=== PATIENT | male | born 1945 | race Caucasian/White ===

== ENCOUNTER → 2018-05-23 | Outpatient (CLI) | payer MEDICARE, BC, OTHER ==
[~2018-05-23] MED LIST: ASPI81EC PO; CEPH500 PO; CIPR500 PO; DRON2.5 PO; GLUCHON PO; LEVFLO500 PO; LORA1 PO; METF500 PO; METR500 PO; MSM PO; ONDA4 PO; ONDA4ODT MM; OXYACE5T PO; OXYACE7.5T PO; OXYC5 PO; SIMV40 PO; TAMS.4ER PO; [UNRECOGNIZED DRUG - REMARK]
[2018-05-23 12:40] LABS: BASOPHILS ABSOLUTE AUTO 0.05 K/mm3 (0.00-0.23); BASOPHILS PERCENT AUTO 1 % (0-2); EOSINOPHILS ABSOLUTE AUTO 0.03 K/mm3 (0.00-0.68); EOSINOPHILS PERCENT AUTO 0 % (0-6); Hematocrit 48.2 % (37.0-53.0); Hemoglobin 16.4 g/dL (13.5-17.5); IMMATURE GRAN ABSOLUTE AUTO 0.02 K/mm3 (0.00-0.10); IMMATURE GRAN PERCENT AUTO 0 % (0-1); LYMPHOCYTES ABSOLUTE AUTO 2.05 K/mm3 (0.84-5.20); LYMPHOCYTES PERCENT AUTO 23 % (21-46); MONOCYTES ABSOLUTE AUTO 0.95 K/mm3 (0.16-1.47); MONOCYTES PERCENT AUTO 11 % (4-13); Mean Corpuscular HGB 31.3 pg (26.0-34.0); Mean Corpuscular Volume 92 fL (80-100); Mean Platelet Volume 11.6 fL (9.1-12.4); NEUTROPHILS ABSOLUTE AUTO 5.99 K/mm3 (1.96-9.15); NEUTROPHILS PERCENT AUTO 66 % (41-73); Platelet Count 218 K/mm3 (150-400); RDW Coefficient Variation 13.4 % (11.7-14.2); RDW Standard Deviation 45.5 fL (35.1-46.3); Red Blood Cell Count 5.24 M/mm3 (4.30-5.90); White Blood Cell Count 9.09 K/mm3 (4.00-11.30)
[2018-05-23 12:50] LABS: Bun/Creatinine Ratio 10.4 (12.0-20.0); Creatinine, Blood 1.54 mg/dL (0.60-1.20); Potassium, Blood 3.6 mmol/L (3.5-5.5)
== END | disposition home or self-care (01) ==
LOC: LAB EV 12:36 → LAB SHORT 12:36
PROVIDERS: Physician Assistant Surgical
DX: J18.9 Pneumonia, unspecified organism (principal)
CPT/HCPCS: 80048; 85025

== ENCOUNTER 2018-08-16 13:16 | Day surgery (SDC) | payer MEDICARE, BC, OTHER ==
--- NOTE | 2018-08-16 15:08 | NUR ---
PT TO ROOM FROM RADIOLOGY. PT HAD LIVER BIOPSY DONE AND IS ON BEDREST FOR 2HRS. PT ARRIVES TO UNIT VIA STRETCHER, ALERT AND ORIENTED. PT FAMILY PRESENT. VSS. PT AND PT FAMILY OFFERED FOOD AND BEVERAGE, BOTH DECLINED. CALL LIGHT IN REACH.
--- NOTE | 2018-08-16 15:40 | NUR ---
vss. pt alert and oriented. nadn. family at bedside.
--- NOTE | 2018-08-16 16:10 | NUR ---
pt resting in position of comfort. nadn. call light in reach.
--- NOTE | 2018-08-16 17:35 | NUR ---
DISCUSSED DC INSTRUCTIONS WITH PT THAT WERE PROVIDED BY IMAGING DEPT. PT HAS NO QUESTIONS. VERBALIZED UNDERSTANDING. ESCORTED PT TO [facility] LOBBY FOR DC.
== END 2018-08-16 17:45 | disposition home or self-care (01) ==
LOC: CT 13:16 → SURS 15:21 → CT 17:45
DX: C18.4 Malignant neoplasm of transverse colon (principal); C78.6 Secondary malignant neoplasm of retroperitoneum and peritoneum; C78.7 Secondary malignant neoplasm of liver and intrahepatic bile duct; R11.0 Nausea
CPT/HCPCS: 47000; 77012; 88307; 88341; 88342

== ENCOUNTER 2018-12-08 06:16 | Day surgery (SDC) | payer MEDICARE, BC, OTHER ==
[~2018-12-08] VITALS: Ht 175.3 cm; Wt 94.0 kg
[~2018-12-08 06:16] MED LIST changes: +Advil Migraine200 MG PO; +CAPE500 PO
--- NOTE | 2018-12-08 07:45 | NUR ---
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
== END 2018-12-08 08:25 | disposition home or self-care (01) ==
LOC: ORSCSDS 06:16
PROVIDERS: Surgery
PROC: 0DBP8ZX Excision of Rectum, Via Natural or Artificial Opening Endoscopic, Diagnostic (ICD-10-PCS; principal; 2018-12-08 07:30)
DX: Z12.11 Encounter for screening for malignant neoplasm of colon (principal); Z85.038 Personal history of other malignant neoplasm of large intestine; Z85.05 Personal history of malignant neoplasm of liver; K62.1 Rectal polyp; K57.30 Diverticulosis of large intestine without perforation or abscess without bleeding; F17.210 Nicotine dependence, cigarettes, uncomplicated; E11.9 Type 2 diabetes mellitus without complications; E78.5 Hyperlipidemia, unspecified; I10 Essential (primary) hypertension
CPT/HCPCS: 82947; 87081; 88305; J0330; J0461; J2405; J2704; J7120

== ENCOUNTER 2020-01-22 06:09 | Day surgery (SDC) | payer MEDICARE, BC, OTHER ==
[~2020-01-22] VITALS: Ht 175.3 cm; Wt 100.9 kg
--- NOTE | 2020-01-22 08:25 | NUR ---
01/22/20 0825 Jyoti Cline F 1 ATTEMPT BY MARIEBL MCMILLAN IN LEFT HAND, TWO ATTEMPTS BY MARIBEL LOMBARDI-ONE IN LEFT HAND AND LEFT AC. MARIBEL CHRISTIANDRAFTER CIVIL ENGINEERING NURSE CAME IN ATTEMPT IN RIGHT AC, LEFT WRIST AND SUCCESSFUL ATTEMPT IN LEFT HAND
== END 2020-01-22 08:10 | disposition home or self-care (01) ==
LOC: ORSCSDS 06:09
PROVIDERS: Surgery
PROC: 0DJ08ZZ Inspection of Upper Intestinal Tract, Via Natural or Artificial Opening Endoscopic (ICD-10-PCS; principal; 2020-01-22 07:30)
DX: K31.89 Other diseases of stomach and duodenum (principal); E11.9 Type 2 diabetes mellitus without complications; E78.5 Hyperlipidemia, unspecified; I10 Essential (primary) hypertension; E03.9 Hypothyroidism, unspecified; F41.9 Anxiety disorder, unspecified; E66.9 Obesity, unspecified; Z68.33 Body mass index [BMI] 33.0-33.9, adult; Z87.891 Personal history of nicotine dependence
CPT/HCPCS: J0330; J0461; J2405; J2704; J7120

== ENCOUNTER → 2020-05-26 | Outpatient (CLI) | payer MEDICARE, BC, OTHER ==
[2020-05-28 16:21] LABS: CORONAVIRUS (COVID19) CSH-NRL Negative (Negative)
== END | disposition home or self-care (01) ==
LOC: PLD 16:46 → LAB SHORT 16:46
PROVIDERS: Physician Assistant
DX: Z20.818 Contact with and (suspected) exposure to other bacterial communicable diseases (principal); Z20.828 Contact with and (suspected) exposure to other viral communicable diseases
CPT/HCPCS: U0003

== ENCOUNTER 2020-05-29 10:11 | Emergency (ER) | payer MEDICARE, BC, OTHER ==
[~2020-05-29] VITALS: Ht 175.3 cm; Wt 97.5 kg
[2020-05-29 11:39] LABS: BASOPHILS ABSOLUTE AUTO 0.04 K/mm3 (0.00-0.23); BASOPHILS PERCENT AUTO 0 % (0-2); EOSINOPHILS ABSOLUTE AUTO 0.13 K/mm3 (0.00-0.68); EOSINOPHILS PERCENT AUTO 1 % (0-6); Hematocrit 45.5 % (37.0-53.0); Hemoglobin 14.5 g/dL (13.5-17.5); IMMATURE GRAN ABSOLUTE AUTO 0.07 K/mm3 (0.00-0.10); IMMATURE GRAN PERCENT AUTO 1 % (0-1); LYMPHOCYTES ABSOLUTE AUTO 1.02 K/mm3 (0.84-5.20); LYMPHOCYTES PERCENT AUTO 8 % (21-46); MONOCYTES ABSOLUTE AUTO 1.97 K/mm3 (0.16-1.47); MONOCYTES PERCENT AUTO 15 % (4-13); Mean Corpuscular HGB 29.7 pg (26.0-34.0); Mean Corpuscular HGB Conc 31.9 g/dL (31.5-36.5); Mean Corpuscular Volume 93 fL (80-100); Mean Platelet Volume 11.4 fL (9.1-12.4); NEUTROPHILS ABSOLUTE AUTO 9.59 K/mm3 (1.96-9.15); NEUTROPHILS PERCENT AUTO 75 % (41-73); Platelet Count 245 K/mm3 (150-400); RDW Standard Deviation 44.7 fL (35.1-46.3); Red Blood Cell Count 4.88 M/mm3 (4.30-5.90); White Blood Cell Count 12.82 K/mm3 (4.00-11.30)
[2020-05-29 11:59] LABS: Alanine Aminotransfer (ALT/SGP 99 U/L (12-78); Albumin, Blood 2.6 g/dL (3.4-5.0); Albumin/Globulin Ratio 0.5 (0.8-1.8); Alk Phos 104 U/L (50-136); Anion Gap 5 mmol/L (6-16); Aspartate Aminotrans (AST/SGOT 72 U/L (12-37); Bilirubin, Total 1.1 mg/dL (0.1-1.0); Blood Urea Nitrogen 16 mg/dL (8-24); Bun/Creatinine Ratio 19.3 (12.0-20.0); CO2, Blood 25 mmol/L (21-32); Calcium, Blood 9.1 mg/dL (8.5-10.1); Chloride, Blood 106 mmol/L (98-108); Creatinine, Blood 0.83 mg/dL (0.60-1.20); Globulin, Blood 5.6 g/dL (2.2-4.0); Glomerular Filtration Rate >60 (60-); Glucose, Blood 113 mg/dL (70-99); Potassium, Blood 4.8 mmol/L (3.5-5.5); Sodium, Blood 136 mmol/L (136-145); Total Protein, Blood 8.2 g/dL (6.4-8.2); Troponin I <0.015 ng/mL (0.000-0.040)
[2020-05-29 12:20] LABS: PCO2 Venous 47 mmHg (38-42); PO2 Venous 34 mmHg (38-42)
[2020-05-29 12:21] LABS: Base Excess Venous 4.3 mmol/L; Bicarbonate Venous 26.6 mmol/L (24.0-30.0)
[2020-05-29 12:32] LABS: Influenza A, PCR Negative (NEGATIVE); Influenza B, PCR Negative (NEGATIVE); Resp Syncytial Virus, PCR Negative (NEGATIVE); SARS-Cov-2 (COVID-19) PCR, MMC Negative (NEGATIVE)
== END 2020-05-29 13:45 | disposition home or self-care (01) ==
LOC: ER 10:11
PROVIDERS: Emergency Medicine
DX: J11.1 Influenza due to unidentified influenza virus with other respiratory manifestations (principal); R09.02 Hypoxemia; D49.0 Neoplasm of unspecified behavior of digestive system; E11.9 Type 2 diabetes mellitus without complications; Z20.828 Contact with and (suspected) exposure to other viral communicable diseases; Z87.891 Personal history of nicotine dependence
CPT/HCPCS: 0241U; 36415; 71045; 80053; 82803; 83880; 84484; 85025; 93005; 93010; 96360; 96361; 99284-25

== ENCOUNTER 2020-07-12 08:03 | Day surgery (SDC) | payer MEDICARE, BC, OTHER ==
[~2020-07-12] VITALS: Ht 175.3 cm; Wt 88.3 kg
--- NOTE | 2020-07-12 10:14 | NUR ---
07/12/20 1014 Elma Chavez PILLOW UNDER KNEES, DONUT UNDER HEAD, BILATERAL ARMS TUCKED
--- NOTE | 2020-07-12 10:41 | NUR ---
07/12/20 1041 Callie Wesley PT TRANSFERRED FROM OR TO STEP DOWN DUE TO ISOLATION ROOM FOR VRE. PT A&O X4. PT DENIES PAIN AND NAUSEA AT THIS TIME. BANDAGE ON RIGHT CHEST CDI, SOFT GAUZE WITH TAPE. STERI STRIP ON R NECK INTACT. XRAY CALLED TO CONFIRM MEDIPORT PLACEMENT. ONCE CONFIRMED FROM RADIOLOGIST WILL OFFER PO INTAKE.
== END 2020-07-12 11:18 | disposition home or self-care (01) ==
LOC: ORSCSDS 08:03
PROVIDERS: Surgery
PROC: 0JH60WZ Insertion of Totally Implantable Vascular Access Device into Chest Subcutaneous Tissue and Fascia, Open Approach (ICD-10-PCS; principal; 2020-07-12 09:30)
DX: C18.9 Malignant neoplasm of colon, unspecified (principal); Z85.038 Personal history of other malignant neoplasm of large intestine; E11.9 Type 2 diabetes mellitus without complications; E78.5 Hyperlipidemia, unspecified; I10 Essential (primary) hypertension; E03.9 Hypothyroidism, unspecified
CPT/HCPCS: 77001; C1788; J0690; J1100; J1642; J2405; J2704; J3010; J7120

== ENCOUNTER 2020-07-29 09:16 | Inpatient (IN) | payer MEDICARE, BC, OTHER ==
--- NOTE | 2020-07-26 20:35 | NUR ---
ANATOLIY REPORTS THAT HE HAS BEEN DIAPHORETIC FOR SEVERAL WEEKS WITH THE EXCEPTION OF THE LAST WEEK. HE STATES THAT OVER THE LAST WEEK HE HAD NOT BEEN DIAPHORETIC AND THAT HE WAS TOLD THE DIAPHORESIS WAS D/T THE TUMOR ON HIS LIVER.
[~2020-07-29] VITALS: Ht 175.3 cm; Wt 84.7 kg
[2020-07-29 10:37] LABS: Hematocrit 34.1 % (37.0-53.0); Hemoglobin 10.8 g/dL (13.5-17.5); Mean Corpuscular HGB 28.1 pg (26.0-34.0); Mean Corpuscular HGB Conc 31.7 g/dL (31.5-36.5); Mean Corpuscular Volume 89 fL (80-100); Mean Platelet Volume 10.4 fL (9.1-12.4); NRBC ABSOLUTE 0.02 K/mm3 (0.00-0.02); NRBC Auto 0.4 /100 WBC (0.0-0.2); Platelet Count 347 K/mm3 (150-400); RDW Coefficient Variation 14.3 % (11.7-14.2); RDW Standard Deviation 45.8 fL (35.1-46.3); Red Blood Cell Count 3.85 M/mm3 (4.30-5.90); White Blood Cell Count 5.45 K/mm3 (4.00-11.30)
[2020-07-29 10:55] LABS: Alanine Aminotransfer (ALT/SGP 111 U/L (12-78); Albumin, Blood 1.8 g/dL (3.4-5.0); Albumin/Globulin Ratio 0.4 (0.8-1.8); Alk Phos 120 U/L (50-136); Anion Gap 11 mmol/L (6-16); Aspartate Aminotrans (AST/SGOT 128 U/L (12-37); Bilirubin, Total 0.7 mg/dL (0.1-1.0); Blood Urea Nitrogen 21 mg/dL (8-24); Bun/Creatinine Ratio 24.8 (12.0-20.0); CO2, Blood 26 mmol/L (21-32); Calcium, Blood 8.3 mg/dL (8.5-10.1); Chloride, Blood 99 mmol/L (98-108); Creatinine, Blood 0.85 mg/dL (0.60-1.20); Globulin, Blood 5.1 g/dL (2.2-4.0); Glomerular Filtration Rate >60 (60-); Glucose, Blood 155 mg/dL (70-99); Potassium, Blood 3.7 mmol/L (3.5-5.5); Sodium, Blood 136 mmol/L (136-145); Total Protein, Blood 6.9 g/dL (6.4-8.2)
[2020-07-29 10:59] LABS: BAND PERCENT MAN 5 % (0-8); BASOPHILS PERCENT MAN 0 % (0-2); EOSINOPHILS PERCENT MAN 0 % (0-6); LYMPHOCYTES ABSOLUTE MAN 1.03 K/mm3 (0.84-5.20); LYMPHOCYTES PERCENT MAN 19 % (21-46); MONOCYTES ABSOLUTE MAN 1.09 K/mm3 (0.16-1.47); MONOCYTES PERCENT MAN 20 % (4-13); NEUTROPHILS ABSOLUTE MAN 3.32 K/mm3 (1.96-9.15); SEG NEUTROPHILS PERCENT MAN 56 % (41-73); TOTAL CELLS COUNTED 100
[2020-07-29 15:44] LABS: Influenza A, PCR Negative (NEGATIVE); Influenza B, PCR Negative (NEGATIVE); Resp Syncytial Virus, PCR Negative (NEGATIVE); SARS-Cov-2 (COVID-19) PCR, MMC Negative (NEGATIVE)
--- NOTE | 2020-07-29 17:59 | NUR ---
pt arrived to floor from pacu at approx 1730. slid to bed via slider sheet. pt denies pain, nausea, lightheadedness or any discomfort. reports no sob. 2L via nasal canula. sats 97%, will titrate down. pt extremely diaphoretic, blood pressure cuffs, gown, scd's soaked. changed gown. offered new cuffs and scd's. pt blood pressure 87 systolic, in the 80's in PACU, per pacu nurse iv fluids running wide open. continued to infuse wide open on arrival. pt resting in bed call light in reach. pt aa0x4. left for home.
[2020-07-30 01:28] LABS: BASOPHILS ABSOLUTE AUTO 0.06 K/mm3 (0.00-0.23); BASOPHILS PERCENT AUTO 1 % (0-2); EOSINOPHILS PERCENT AUTO 0 % (0-6); Hematocrit 35.9 % (37.0-53.0); IMMATURE GRAN ABSOLUTE AUTO 0.07 K/mm3 (0.00-0.10); IMMATURE GRAN PERCENT AUTO 2 % (0-1); LYMPHOCYTES ABSOLUTE AUTO 0.83 K/mm3 (0.84-5.20); LYMPHOCYTES PERCENT AUTO 19 % (21-46); MONOCYTES ABSOLUTE AUTO 0.33 K/mm3 (0.16-1.47); MONOCYTES PERCENT AUTO 8 % (4-13); Mean Corpuscular HGB 28.1 pg (26.0-34.0); Mean Corpuscular HGB Conc 30.6 g/dL (31.5-36.5); Mean Corpuscular Volume 92 fL (80-100); Mean Platelet Volume 10.3 fL (9.1-12.4); NEUTROPHILS PERCENT AUTO 70 % (41-73); Platelet Count 309 K/mm3 (150-400); RDW Coefficient Variation 14.5 % (11.7-14.2); RDW Standard Deviation 47.8 fL (35.1-46.3); Red Blood Cell Count 3.92 M/mm3 (4.30-5.90); White Blood Cell Count 4.29 K/mm3 (4.00-11.30)
[2020-07-30 01:42] LABS: Anion Gap 7 mmol/L (6-16); Blood Urea Nitrogen 17 mg/dL (8-24); Bun/Creatinine Ratio 27.7 (12.0-20.0); CO2, Blood 27 mmol/L (21-32); Calcium, Blood 8.4 mg/dL (8.5-10.1); Chloride, Blood 106 mmol/L (98-108); Creatinine, Blood 0.61 mg/dL (0.60-1.20); Glomerular Filtration Rate >60 (60-); Glucose, Blood 175 mg/dL (70-99); Potassium, Blood 4.2 mmol/L (3.5-5.5); Sodium, Blood 140 mmol/L (136-145)
[2020-07-30 01:46] LABS: BAND PERCENT MAN 4 % (0-8); BASOPHILS PERCENT MAN 0 % (0-2); EOSINOPHILS PERCENT MAN 0 % (0-6); LYMPHOCYTES ABSOLUTE MAN 0.72 K/mm3 (0.84-5.20); LYMPHOCYTES PERCENT MAN 17 % (21-46); MONOCYTES ABSOLUTE MAN 0.25 K/mm3 (0.16-1.47); MONOCYTES PERCENT MAN 6 % (4-13); SEG NEUTROPHILS PERCENT MAN 73 % (41-73); TOTAL CELLS COUNTED 100
--- NOTE | 2020-07-30 06:02 | NUR ---
SHIFT SUMMARY: ANATOLIY IS A&OX4. VSS WITH LOW BP NOTED, DR CHRISTIAN. HE DENIES DIZZINESS OR LIGHTHEADEDNESS, BUT IS A LITTLE UNSTEADY ON HIS FEET ON AMBULATION. HE IS A ONE PERSON ASSIST TO THE BATHROOM. HE DID HAVE DIFFICULTY URINATING AT THE BEGINNING OF THE SHIFT, BUT HE HAS VOIDED TWICE THIS AM. BLADDER SCAN DEMONSRATED 744 ML INITIALLY, AND 404 AFTER THE FIRST VOID. HE WAS ABLE TO VOID 400 ML APPROX HALF AN HOUR LATER. HE IS TOLERATING CLEARS WELL, DENIES ANY NAUSEA OR VOMITING. HE ALSO DENIES PAIN. ABDOMINAL DRESSING CHANGED THIS AM. IV TO L AC PATENT. HE REPORTS THE DIAPHORESIS MUCH IMPROVED. HE IS LYING IN BED WITH HIS CALL LIGHT IN REACH. WILL REPORT TO DAY SHIFT RN.
--- NOTE | 2020-07-30 15:59 | NUR ---
CARE COORDINATION REFERRAL - ADMIT: 07/29/20 DISCHARGE: DX: ABDOMINAL WALL ABSCESS CC: EPIFANIO CALL: RESIDENCE: HOME WITH SPOUSE CAREGIVER: EDITH CARRERA, FAMILY MEMBER, SAM WALKER, SPOUSE / PARTNER, DX: COLON CANCER, LIVER CANCER, TYPE 2 DM, SEE LIST DME: NONE CCM: NONE HOME HEALTH: NONE SUMMARY: 07/29/20- 07/30/20- PER CHART REVIEW WITH DR. GUILLORY, PT HAD SURGERY YESTERDAY BY DR. CHO. PT WAS STARTED ON CHEMO 2 WEEKS AGO FOR RECURRING COLON CANCER. NO EST ETA FOR D/C AT THIS TIME. -CHARLESW
--- NOTE | 2020-07-30 16:56 | NUR ---
ASSUMED CARE OF PATIENT AT THIS TIME. REPORT FROM OFF GOING RN.
--- NOTE | 2020-07-30 16:57 | NUR ---
ostomy: APPLIANCE OVER JULIAN DRAIN CHANGED AFTER BEDBATH FOR LOOSENING. 100CC BROWN LIQUID EMPTIED. SKIN PREP AROUND APPLIANCE FOR REDNESS.
--- NOTE | 2020-07-30 19:33 | NUR ---
pt has been stable since this rn assumed care. ostomy appliance changed x1 after bath. pt mackenzie small amt reg food this evening, reports poor appetite. cont iv fluids as ordered. cont abx. denies pain and nausea. voiding well. uses call light appropriately as needed.
--- NOTE | 2020-07-31 04:07 | NUR ---
SHIFT SUMMARY PT AOX4. VSS. BP WNL. S/P I&D W/ DR. CHO. YANA JORDAN PRESENT IN OSTOMY BAG W/ MINIMAL OUTPUT, BROWN. PT DENIES PAIN. HE ALSO DENIES N/V. TOLERATING LIQ DIET REPORTS CHRONIC DECREASE APPETITE. HE C/O HARD TIME SLEEPING. HOSPITALIST WAS CALLED AND MELATONIN WAS ADMINISTERED. MELATONIN HAS HELPED. PT IS COMFORTABLE IN ROOM, SLEEPING. FLUIDS INFUSING ON LEFT ARM. ABX ADMINSTERED WELL. CALL LIGHT W/IN REACH.
[2020-07-31 06:05] LABS: Alanine Aminotransfer (ALT/SGP 61 U/L (12-78); Albumin, Blood 1.5 g/dL (3.4-5.0); Albumin/Globulin Ratio 0.3 (0.8-1.8); Alk Phos 76 U/L (50-136); Anion Gap 6 mmol/L (6-16); Aspartate Aminotrans (AST/SGOT 37 U/L (12-37); Bilirubin, Total 0.3 mg/dL (0.1-1.0); Blood Urea Nitrogen 15 mg/dL (8-24); Bun/Creatinine Ratio 28.4 (12.0-20.0); CO2, Blood 28 mmol/L (21-32); Calcium, Blood 8.5 mg/dL (8.5-10.1); Chloride, Blood 108 mmol/L (98-108); Creatinine, Blood 0.53 mg/dL (0.60-1.20); Globulin, Blood 4.3 g/dL (2.2-4.0); Glomerular Filtration Rate >60 (60-); Glucose, Blood 116 mg/dL (70-99); Phosphorus, Blood 3.5 mg/dL (2.5-4.9); Potassium, Blood 3.5 mmol/L (3.5-5.5); Prealbumin, Blood 4.9 mg/dL (20.0-40.0); Sodium, Blood 142 mmol/L (136-145); Total Protein, Blood 5.8 g/dL (6.4-8.2)
--- NOTE | 2020-07-31 07:30 | NUR ---
pt sleeping wakes to verbal stimuli stated he didn't sleep well last night that he is worried about his situation re his chemo and missing his appointment and his tumor growing
--- NOTE | 2020-07-31 09:57 | NUR ---
discharge instructions reviewed with pt verbalized pt getting dressed pt with no acute changes dr jasmine by earlier to f/u in 5-7 days to remove ron drain supplies given also called dr elkin almazan stated that he completed his course
--- NOTE | 2020-07-31 10:45 | NUR ---
wc escort to car
== END 2020-07-31 10:45 | disposition home or self-care (01) | DRG 356 ==
LOC: ER 09:16 → SURS 09:17 → ER 15:06 → SURS 15:06
PROVIDERS: Emergency Medicine; Surgery; ADMIT Family Medicine
PROC: 0W9F00Z Drainage of Abdominal Wall with Drainage Device, Open Approach (ICD-10-PCS; principal; 2020-07-29 15:00)
DX: K63.2 Fistula of intestine (principal); E43 Unspecified severe protein-calorie malnutrition; L02.211 Cutaneous abscess of abdominal wall; C49.A0 Gastrointestinal stromal tumor, unspecified site; C18.9 Malignant neoplasm of colon, unspecified; Z20.822 Contact with and (suspected) exposure to COVID-19; Z90.49 Acquired absence of other specified parts of digestive tract; Z68.26 Body mass index [BMI] 26.0-26.9, adult; E11.65 Type 2 diabetes mellitus with hyperglycemia; B96.1 Klebsiella pneumoniae [K. pneumoniae] as the cause of diseases classified elsewhere
CPT/HCPCS: 0241U; 36415; 74177; 80048; 80053; 83605; 83690; 83735; 84100; 84134; 84484; 85025; 87070; 87075; 87076; 87077; 87185; 87186; 87205; 93005; 93010; 96361-59; 96365-59; 96366; 96372; 96375-59; 96376; 99285-25; A9270; G0378; J0330; J1100; J1200; J1650; J1885; J2250; J2405; J2543; J2704; J2765; J3010; J7030; J7120; Q9967

== ENCOUNTER → 2020-08-07 | Outpatient (CLI) | payer MEDICARE, BC, OTHER ==
[~2020-08-07] MED LIST changes: +ACET120S PR; +Acetaminophen325 M1 PO; +LORA.5 PO; +MORP20L SL; +PANT20 PO; +Percocet 5-3251 EACH PO; +ZOLP5 PO
== END | disposition home or self-care (01) ==
LOC: LAB 11:20 → LAB SHORT 11:20
DX: R30.0 Dysuria (principal)
CPT/HCPCS: 87086

== ENCOUNTER 2020-08-09 19:23 | Inpatient (IN) | payer OTHER, MEDICARE, BC ==
[~2020-08-09] VITALS: Ht 175.3 cm; Wt 75.7 kg
[~2020-08-09 19:23] MED LIST changes: -ACET120S PR; -Acetaminophen325 M1 PO; -LORA.5 PO; -MORP20L SL; -PANT20 PO; -Percocet 5-3251 EACH PO; -ZOLP5 PO
[2020-08-09 20:13] LABS: BASOPHILS ABSOLUTE AUTO 0.12 K/mm3 (0.00-0.23); BASOPHILS PERCENT AUTO 1 % (0-2); EOSINOPHILS ABSOLUTE AUTO 0.04 K/mm3 (0.00-0.68); EOSINOPHILS PERCENT AUTO 0 % (0-6); Hematocrit 44.7 % (37.0-53.0); IMMATURE GRAN ABSOLUTE AUTO 0.05 K/mm3 (0.00-0.10); IMMATURE GRAN PERCENT AUTO 0 % (0-1); LYMPHOCYTES ABSOLUTE AUTO 3.89 K/mm3 (0.84-5.20); LYMPHOCYTES PERCENT AUTO 32 % (21-46); MONOCYTES ABSOLUTE AUTO 1.23 K/mm3 (0.16-1.47); MONOCYTES PERCENT AUTO 10 % (4-13); Mean Corpuscular HGB 27.8 pg (26.0-34.0); Mean Corpuscular HGB Conc 31.3 g/dL (31.5-36.5); Mean Corpuscular Volume 89 fL (80-100); Mean Platelet Volume 10.3 fL (9.1-12.4); NEUTROPHILS PERCENT AUTO 57 % (41-73); Platelet Count 623 K/mm3 (150-400); RDW Coefficient Variation 14.9 % (11.7-14.2); RDW Standard Deviation 47.7 fL (35.1-46.3); Red Blood Cell Count 5.04 M/mm3 (4.30-5.90); White Blood Cell Count 12.33 K/mm3 (4.00-11.30)
[2020-08-09 20:33] LABS: Alanine Aminotransfer (ALT/SGP 43 U/L (12-78); Albumin, Blood 2.8 g/dL (3.4-5.0); Albumin/Globulin Ratio 0.4 (0.8-1.8); Alk Phos 157 U/L (50-136); Anion Gap 7 mmol/L (6-16); Aspartate Aminotrans (AST/SGOT 37 U/L (12-37); Bilirubin, Total 0.6 mg/dL (0.1-1.0); Blood Urea Nitrogen 26 mg/dL (8-24); Bun/Creatinine Ratio 23.2 (12.0-20.0); CO2, Blood 28 mmol/L (21-32); Calcium, Blood 9.8 mg/dL (8.5-10.1); Chloride, Blood 96 mmol/L (98-108); Creatinine, Blood 1.12 mg/dL (0.60-1.20); Globulin, Blood 6.7 g/dL (2.2-4.0); Glomerular Filtration Rate >60 (60-); Glucose, Blood 127 mg/dL (70-99); Potassium, Blood 4.7 mmol/L (3.5-5.5); Sodium, Blood 131 mmol/L (136-145); Total Protein, Blood 9.5 g/dL (6.4-8.2)
[2020-08-10 04:48] LABS: Alanine Aminotransfer (ALT/SGP 30 U/L (12-78); Albumin, Blood 2.2 g/dL (3.4-5.0); Albumin/Globulin Ratio 0.4 (0.8-1.8); Alk Phos 125 U/L (50-136); Anion Gap 7 mmol/L (6-16); Aspartate Aminotrans (AST/SGOT 28 U/L (12-37); Bilirubin, Total 0.5 mg/dL (0.1-1.0); Blood Urea Nitrogen 25 mg/dL (8-24); Bun/Creatinine Ratio 24.8 (12.0-20.0); CO2, Blood 28 mmol/L (21-32); Calcium, Blood 8.8 mg/dL (8.5-10.1); Chloride, Blood 99 mmol/L (98-108); Creatinine, Blood 1.01 mg/dL (0.60-1.20); Globulin, Blood 5.5 g/dL (2.2-4.0); Glomerular Filtration Rate >60 (60-); Glucose, Blood 133 mg/dL (70-99); Potassium, Blood 3.9 mmol/L (3.5-5.5); Sodium, Blood 134 mmol/L (136-145); Total Protein, Blood 7.7 g/dL (6.4-8.2)
--- NOTE | 2020-08-10 05:51 | NUR ---
SHIFT SUMMARY S/P ENTEROCUTANEOUS FISTULA EXACERBATION, A/O X4, VSS, NPO SINCE ADMISSION/MIDNIGHT, DENIES PAIN, VOIDING WELL, NO BM THIS SHIFT, NEW OSTOMY BAG PLACED OVER FISTULA OPENING, DRAINING DARK FLUID. CALL LIGHT IN REACH, WILL CONTINUE TO MONITOR AND REPORT TO ONCOMING DAY RN.
--- NOTE | 2020-08-10 16:06 | NUR ---
ASSUMED CARE OF PT FROM MORENITA Randolph RN.
--- NOTE | 2020-08-10 17:36 | NUR ---
SUMMARY NO ACUTE CHANGES SINCE ASSUMING CARE OF PT THIS AFTERNOON. TPN INFUSING TO PICC LINE PER ORDERS. PT INDEPENDENT. AMBULATING IN JASMINE W/SPOUSE AT THIS TIME.
[2020-08-11 04:27] LABS: Anion Gap 5 mmol/L (6-16); Blood Urea Nitrogen 20 mg/dL (8-24); Bun/Creatinine Ratio 25.2 (12.0-20.0); CO2, Blood 29 mmol/L (21-32); Calcium, Blood 8.5 mg/dL (8.5-10.1); Chloride, Blood 102 mmol/L (98-108); Creatinine, Blood 0.79 mg/dL (0.60-1.20); Glomerular Filtration Rate >60 (60-); Glucose, Blood 115 mg/dL (70-99); Magnesium, Blood 2.1 mg/dL (1.6-2.4); Phosphorus, Blood 4.3 mg/dL (2.5-4.9); Potassium, Blood 3.8 mmol/L (3.5-5.5); Prealbumin, Blood 12.6 mg/dL (20.0-40.0); Sodium, Blood 136 mmol/L (136-145); Triglycerides 126 mg/dL (30-160)
--- NOTE | 2020-08-11 06:30 | NUR ---
SUMMARY CBGS STABLE SO FAR 117,115.PT REMAINS NPO PER ORDERS IN HOPES OF GIVING FISTULA TIME TO HEAL.OSTOMY APPLIANCE REQUIRED CHANGE X 2 THIS SHIFT. SKIN IRRITATED/INFLAMMED.PLACED LARGE OPSITE OVER SKIN AFTER SKIN PREP APPLIED AND SKIN CLEANSED.ATTACHED WAFER TO OPSITE TO ALLOW FOR SKIN TO HEAL AND FOR IMPROVED CONTACT OF WAFER.HOLE CREATED TO ALLOW FISTULA TO DRAIN.PT IS AMBULATORY FOR BRP.VERB FEELING LESS WEAK SINCE TPN STARTED.
--- NOTE | 2020-08-11 08:27 | NUR ---
A&OX3, DENIES ANY PAIN OR ANY DISCOMFORT AT THIS TIME, PICC LINE IN PLACE, TPN INFUSING, OSTOMY APPLIANCE OVER FISTULA NOTED INTACT, CONT. TO MONITOR FOR ANY CHANGES.
--- NOTE | 2020-08-11 11:08 | NUR ---
OSTOMY APPLIANCE OVER ABD FISTULA LEAKING, SKIN AROUND FISTULA AND LOWER ABD W/ REDNESS & EXCORIATION, SKIN CLEANED WITH SOAP AND WATER, DRIED, NO STING BARRIER APPLIED, STOMA POWDER AROUND FISTULA SITE AND EXPOSED SKIN, ANTELMO WOUND POUCH APPLIED.
--- NOTE | 2020-08-11 18:08 | NUR ---
DENIES ANY PAIN OR NAUSEA, REPORTS FEELING BETTER TODAY, AMBULATING DOWN THE HALLS, TOLERATED WELL, WOUND POUCH C/D/I, PT STATES HE'S EMPIED ABOUT 60CC TODAY, STATES OUTPUT HAS "SLOWED DOWN" PICC DRESSING CHANGED TODAY, NO ACUTE CHANGES THIS SHIFT.
[2020-08-12 04:45] LABS: Anion Gap 6 mmol/L (6-16); Blood Urea Nitrogen 23 mg/dL (8-24); Bun/Creatinine Ratio 27.6 (12.0-20.0); CO2, Blood 30 mmol/L (21-32); Calcium, Blood 8.5 mg/dL (8.5-10.1); Chloride, Blood 101 mmol/L (98-108); Creatinine, Blood 0.83 mg/dL (0.60-1.20); Glomerular Filtration Rate >60 (60-); Glucose, Blood 140 mg/dL (70-99); Magnesium, Blood 2.1 mg/dL (1.6-2.4); Phosphorus, Blood 3.7 mg/dL (2.5-4.9); Sodium, Blood 137 mmol/L (136-145)
--- NOTE | 2020-08-12 06:33 | NUR ---
SUMMARY PT CONTINUES TO HAVE LEAKAGE AT FISTULA SITE BROWN/YELLOW IN COLOR,WOUND DRNG COLLECTION DEVICE NOTE OVER WOUND, NOTED NOT CATCHING DRNG, HAS A HARD PLASTIC PIECE ON TOP SURFACE OF BAG AND DRG WAS RUNNING UNDERNEATH THAT AREA AND POOLING TO EXCORIATED SKIN BELOW. I DISCUSSED WITH HEALTH AND WELLNESS MANAGER KELSY AND PLACEDS AQUACELL DRESSING OVER FISTULA AREA TO COLLECT DRNG AND FILLED CREVICE IN A ABD SCAR WITH ADAPTIVE PASTE BELOW FISTULA TO AIDE IN PREVENTING RUNOFF BELOW DRESSING, PREVIOUS SUBPOENA SERVER I WORKE, I ALREADY PLACED TEGADERM TO SKIN THEN PLACED OSTOMY APPLIANCE HOPING TO CATCH DRNBG AND PROTECT SKIN, BUT OIT WAS INEFFECTIVE.ALSO TRIED JUST OSTOMY WAFER/APPLIANCE CHANGE WHICH WAS INEFFECTIVE, SO THIS WAS ANOTHER ALTERNATIVE.AGAIN PT HAD LEAKAGE BELOW LOWER END. I PLACED LARGER AQUACELL THAT EXTENDED FURTHER DOWN BELOW LEVEL OF CLEFT IN ABD SCAR, BUT STILL WITH SOME LEAKAGE, HOWEVER LESS. I AGAIN SPOKE WITH HEALTH AND WELLNESS MANAGER AND WE DECIDE TO TRY EXUDRY FOR ABSORBING PROPERTIES AND COVER WITH MEPILEX DSNGS TO SEAL EXUDRY DOWN AND AND DUE TO ITS ABILITY TO BE REMOVED FROM SKIN WITH EASE AND WILL BE GENTLE ON EXCORIATED AREAS.I WILL REQUEST DAY RN TO DISCUSS WITH DOCTOR ANY OTHER POSSIBILITIES WITH DRESSINGS SUCH WICKING/ LEIF WOUND VAC? CONCERNED FOR SURROUNDING TISSUE.ALSO WILL DISCUSS WITH DAY RN NEED TO ASK DR IF SILVADENE MIGHT BE HELPFUL IN TRYING TO HEAL EXPOSED EXCORIATED SKIN.ALSO NOTING PT MILDLY HYPOTENSIVE, BUT IS NOT TACHY. HOWEVER URINE OUTPUT TONIGHT 305 ML AND MOD LANDON IN COLOR. UNABLE TO MEASURE FISTULA OUTPUT BUT PT MIGHT BENEFIT FROM EXTRA IV FLUIDS DUE TO FACTORS ABOVE NOTED AND NPO STATUS. WILL ASK DAY RN TO ADRESS THIS WITH DR MURRAY WELL.
--- NOTE | 2020-08-12 10:58 | NUR ---
CARE COORDINATION REFERRAL - ADMIT: 08/09/20 DISCHARGE: DX: HIGH OUTPUT ENTEROCUTANEOUS FISTULA. CC: ADMIT: 07/29/20 DISCHARGE: 07/31/20 DX: ABDOMINAL WALL ABSCESS EPIFANIO CALL: PT AT HOME RESIDENCE: HOME WITH SPOUSE CAREGIVER: EDITH CARRERA, FAMILY MEMBER, SAM WALKER, SPOUSE / PARTNER, DX: COLON CANCER, LIVER CANCER, TYPE 2 DM, SEE LIST DME: NONE CCM: NONE HOME HEALTH: [facility]
--- NOTE | 2020-08-12 13:04 | NUR ---
Advance Directive (AD) education/spiritaul care visit conducted. Upon receiving an admit referral for AD education, I viait patient. Patient states that he is interested in the AD but doesn't want to discuss it unless his is around. I give patient the AD form as way of talking points for their discussion and he states that they will contact me if they have questions. Patient also talks about his service in the [employer] and [employer]. 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 Patient talks some about his spiritual journey (which is a personal thing for him), his and 6 grown children. He talks about golf which is his main hobby and what recharges his battery. Even in the last 11 years while battling cancer 3 times he has still managed to play 150 rounds of golf every year. I normalize patient's experience, reinforce helpful attitudes and practices and provide companionship, spiritual guidance and a calming presence. Patient responds well and shows signs of an elevated mood.
--- NOTE | 2020-08-12 18:58 | NUR ---
PT HAS BEEN STABLE THIS SHIFT. OSTOMY APPLIANCE HAS HELD WELL OVER FISTULA. 90CC TOTAL OUTPUT FROM FITULA. PT HAD LR X 1L FOR DECREASED URINE OUTPUT, HAS IMPROVED BUT REMAINS DARK. CONTINUE CPN AT 75CC HR. PT UP INDEP IN ROOM. NO COMPLAINTS OF PAIN. REMAINS NPO EXCEPT FOR SMALL AMT ICE CHIPS. USES CALL LIGHT NEEDED.
--- NOTE | 2020-08-13 04:59 | NUR ---
SHIFT SUMMARY: PT A&OX4. LOW GRADE TEMP OF 99.6. ALL OTHER VS WNL. OSTOMY APPLIANCE INTACT. FISTULA DRAINING SMALL AMOUNT OF GREENISH DRG. TOTAL OF 60CC EMPTIED. PT MANAGING DRAIN INDEPENDENTLY. NPO EXCENT FOR ICE CHIPS. PT DENIES N/V. DENIES PAIN. TPN INFUSING PER EMAR. PT INDEPENDENT IN ROOM. VOIDING WELL. URINE REMAINS DARK IN COLOR.
[2020-08-13 06:17] LABS: Anion Gap 5 mmol/L (6-16); Blood Urea Nitrogen 20 mg/dL (8-24); Bun/Creatinine Ratio 25.8 (12.0-20.0); CO2, Blood 30 mmol/L (21-32); Calcium, Blood 8.1 mg/dL (8.5-10.1); Chloride, Blood 102 mmol/L (98-108); Creatinine, Blood 0.78 mg/dL (0.60-1.20); Glomerular Filtration Rate >60 (60-); Glucose, Blood 132 mg/dL (70-99); Magnesium, Blood 1.9 mg/dL (1.6-2.4); Phosphorus, Blood 3.4 mg/dL (2.5-4.9); Potassium, Blood 3.8 mmol/L (3.5-5.5); Sodium, Blood 137 mmol/L (136-145)
--- NOTE | 2020-08-13 07:40 | NUR ---
pt awake req i put a new bag on his ostomy bag pt stated it has held for over 24 hrs pt stated he slept well last night
--- NOTE | 2020-08-13 08:18 | NUR ---
dr jasmine by to see pt ok to discharge home today if his tpn is available for outpt
--- NOTE | 2020-08-13 08:30 | NUR ---
pt sleeping wakes to verbal stimuli meds given as sched will call case mgmt
--- NOTE | 2020-08-13 08:57 | NUR ---
talked with fidelia allen tpn stated she started working on the order may take a day
--- NOTE | 2020-08-13 11:42 | NUR ---
DR CHO BY TO SEE PT TO HAVE 1 BAG IVF TODAY
--- NOTE | 2020-08-13 13:10 | NUR ---
pt talking on the phone
--- NOTE | 2020-08-13 15:14 | NUR ---
ice chips given per req pt at bedside earlier sales representative [employer] furniture went over dressing appliction with this dressing has maintained its hold the longest so far per pt
--- NOTE | 2020-08-13 17:00 | NUR ---
pt amb in hallway with s/o also emptied out bag est 200 ml drained meds given as sched
--- NOTE | 2020-08-14 03:39 | NUR ---
SHIFT SUMMARY: ENTEROCUTANEOUS FISTULA PATIENT IS ALERT AND ORIENTED X4 WHILE AWAKE. HE HAS HAD A LOW GRADE TEMP OF 99.0 BUT ALL OTHER VS ARE WNL. OSTOMY APPLIANCE IS INTACT WITH GREEN OUTPUT. PATIENT REPORTS "THIS IS THE LOWEST AMOUNT OF OUTPUT I'VE HAD RECENTLY". HE IS EMPTYING THE OSTOMY APPLIANCE HIMSELF. HE IS NPO EXCEPT FOR ICE CHIPS. HE DENIES NAUSEA/VOMITING. HE ALSO DENIES PAIN AT THIS TIME BUT HAS PAIN MEDICATIONS IN EMAR PRN. TPN IS INFUSING PER EMAR. PATIENT IS INDPENDANT IN THE ROOM. HE IS VOIDING WELL. URINE IS STILL A DARK COLOR. HE IS CURRENTLY LAYING IN BED ASLEEP WITH EQUAL/EVEN RESP. CALL LIGHT WITHIN REACH. THE PLAN IS TO DISCHARGE HOME LATER TODAY WITH HOME HEALTH.
--- NOTE | 2020-08-14 07:45 | NUR ---
oob to bathroom to void req another bag appliance is the same holding intact pt stated he feels lie the liquid is thinner green then yesterday req ice chips
--- NOTE | 2020-08-14 09:06 | NUR ---
meds given as sched dr jasmine by to see pt earlier
--- NOTE | 2020-08-14 11:51 | NUR ---
PT REQ JASBIR H/H VS ROSETTA DISCUSSED WITH COMMISSIONS COORDINATOR AND LEFT A MESSAGE WITH CASE MGMT ANA
--- NOTE | 2020-08-14 12:21 | NUR ---
tpn to be delivered
--- NOTE | 2020-08-14 13:22 | NUR ---
pt had small leaking from the bag assisted pt to clean up appliance intact tpn to be delivered to the house in the am
--- NOTE | 2020-08-14 18:30 | NUR ---
RECHECK TEMP ORAL 100.1 TPN PLACED PT STATED EARLIER HE FELT COLD NO HE FEELS FINE STATED THAT WAS THE FEVER EARLIER TEMP WAS 100 .7
[2020-08-15 05:40] LABS: BASOPHILS ABSOLUTE AUTO 0.05 K/mm3 (0.00-0.23); BASOPHILS PERCENT AUTO 1 % (0-2); EOSINOPHILS ABSOLUTE AUTO 0.06 K/mm3 (0.00-0.68); EOSINOPHILS PERCENT AUTO 1 % (0-6); Hematocrit 30.8 % (37.0-53.0); Hemoglobin 9.9 g/dL (13.5-17.5); IMMATURE GRAN ABSOLUTE AUTO 0.03 K/mm3 (0.00-0.10); IMMATURE GRAN PERCENT AUTO 0 % (0-1); LYMPHOCYTES ABSOLUTE AUTO 1.81 K/mm3 (0.84-5.20); LYMPHOCYTES PERCENT AUTO 27 % (21-46); MONOCYTES ABSOLUTE AUTO 1.14 K/mm3 (0.16-1.47); MONOCYTES PERCENT AUTO 17 % (4-13); Mean Corpuscular HGB 28.4 pg (26.0-34.0); Mean Corpuscular HGB Conc 32.1 g/dL (31.5-36.5); Mean Corpuscular Volume 88 fL (80-100); Mean Platelet Volume 11.5 fL (9.1-12.4); NEUTROPHILS ABSOLUTE AUTO 3.62 K/mm3 (1.96-9.15); NEUTROPHILS PERCENT AUTO 54 % (41-73); Platelet Count 215 K/mm3 (150-400); RDW Coefficient Variation 14.9 % (11.7-14.2); RDW Standard Deviation 48.3 fL (35.1-46.3); Red Blood Cell Count 3.49 M/mm3 (4.30-5.90); White Blood Cell Count 6.71 K/mm3 (4.00-11.30)
[2020-08-15 05:51] LABS: Alanine Aminotransfer (ALT/SGP 33 U/L (12-78); Albumin, Blood 1.6 g/dL (3.4-5.0); Albumin/Globulin Ratio 0.3 (0.8-1.8); Alk Phos 129 U/L (50-136); Anion Gap 7 mmol/L (6-16); Aspartate Aminotrans (AST/SGOT 38 U/L (12-37); Bilirubin, Total 0.6 mg/dL (0.1-1.0); Blood Urea Nitrogen 17 mg/dL (8-24); Bun/Creatinine Ratio 24.4 (12.0-20.0); CO2, Blood 28 mmol/L (21-32); Chloride, Blood 103 mmol/L (98-108); Globulin, Blood 4.9 g/dL (2.2-4.0); Glomerular Filtration Rate >60 (60-); Glucose, Blood 104 mg/dL (70-99); Potassium, Blood 3.6 mmol/L (3.5-5.5); Sodium, Blood 138 mmol/L (136-145); Total Protein, Blood 6.5 g/dL (6.4-8.2)
--- NOTE | 2020-08-15 06:37 | NUR ---
SUMMARY PTS FISTULA LEAKING OUTSIDE OSTOMY WAFER AT SHIFT CHANGE. Franki CARABALLO RN CHANGED AND SO FAR THIS SHIFT NO FURTHER LEAKING.PT GAINING WEIGHT PER AM DAILY WEIGHT.PT ANXIOUS TO GO HOME.
[2020-08-15] MEDS ORDERED: PANT20 PO (12:18)
--- NOTE | 2020-08-15 14:12 | NUR ---
DR. CHO NOTIFIED THAT PT'S PICC LINE CAME OUT 1.5CM DURING DRESSING CHANGE. UPON MORNING ASSESSMENT PICC LINE WAS OUT 5CM. WHEN INSERTED IT WAS OUT 3CM. PICC RN MITALI KAT NOTIFIED OF CHANGES. PICC LINE FLUSHES AND ABLE TO PULL BLOOD.
--- NOTE | 2020-08-15 15:09 | NUR ---
PICC LINE PER DR GARCIA, PICC LINE IN GOOD POSITION.
--- NOTE | 2020-08-15 15:20 | NUR ---
PICC LINE PLACEMENT WAS CONFIRMED BY RADIOLOGY AND OK TO RESTART TPN. TPN RESTARTED.
--- NOTE | 2020-08-15 18:21 | NUR ---
DISCHARGE PT PROVIDED WITH WRITTEN AND VERBAL DISCHARGE INSTRUCTIONS. PT AND SPOUSE REPORTED UNDERSTANDING. SOME WOUND CARE SUPPLIES SENT HOME UNTIL HOME HEALTH CAN SEE PATIENT AND ORDER SUPPLIES. PT UNDERSTANDS THAT THE TPN WILL BE STARTED TOMORROW. PT AMBULATED OUT WITHOUT ASSISTANCE.
== END 2020-08-15 18:00 | disposition home health service (06) | DRG 393 ==
LOC: ER 19:23 → SURS 22:53
PROVIDERS: Physician Assistant; ADMIT Surgery
PROC: 02HV33Z Insertion of Infusion Device into Superior Vena Cava, Percutaneous Approach (ICD-10-PCS; principal; 2020-08-15)
DX: K63.2 Fistula of intestine (principal); E43 Unspecified severe protein-calorie malnutrition; E86.0 Dehydration; R23.8 Other skin changes; Z85.038 Personal history of other malignant neoplasm of large intestine; E78.5 Hyperlipidemia, unspecified; E03.9 Hypothyroidism, unspecified; E11.9 Type 2 diabetes mellitus without complications
CPT/HCPCS: 36415; 36569; 71045; 80048; 80053; 82947; 83735; 84100; 84134; 84478; 85025; 87081; 87147; 93971; 96360; 96361; 99285-25; C1751; C1769; C9113; G0008; J1650; J2354; J7120; Q2038

== ENCOUNTER 2020-08-23 01:06 | Day surgery (SDC) | payer MEDICARE, BC, OTHER ==
[~2020-08-23 01:06] MED LIST changes: +PANT20 PO
== END 2020-08-23 23:50 | disposition home or self-care (01) ==
LOC: ATC 01:06
DX: C18.9 Malignant neoplasm of colon, unspecified (principal); C78.7 Secondary malignant neoplasm of liver and intrahepatic bile duct; C78.6 Secondary malignant neoplasm of retroperitoneum and peritoneum; E78.5 Hyperlipidemia, unspecified; I10 Essential (primary) hypertension; E11.9 Type 2 diabetes mellitus without complications; Z85.038 Personal history of other malignant neoplasm of large intestine

== ENCOUNTER 2020-08-23 15:41 | Inpatient (IN) | payer MEDICARE, BC, OTHER ==
[~2020-08-23] VITALS: Ht 175.3 cm; Wt 80.2 kg
--- NOTE | 2020-08-23 16:20 | NUR ---
PT ARRIVED DR PALACIOS FROM HOME PT IS BEING ADMITTED FOR DEHYDRATION PT CURRENTLY ON TPN AND HAS BEEN GETTING [facility] AND ON [facility]
--- NOTE | 2020-08-23 16:29 | NUR ---
DR CHO BY TO SEE PT PT GETTING A LR BOLUS 1 LITER
--- NOTE | 2020-08-23 17:42 | NUR ---
pt transported to [facility] via
--- NOTE | 2020-08-23 17:53 | NUR ---
pt back to the room
[2020-08-23 20:32] LABS: Hematocrit 31.8 % (37.0-53.0); Hemoglobin 10.1 g/dL (13.5-17.5); Mean Corpuscular HGB 28.2 pg (26.0-34.0); Mean Corpuscular HGB Conc 31.8 g/dL (31.5-36.5); Mean Corpuscular Volume 89 fL (80-100); Mean Platelet Volume 11.1 fL (9.1-12.4); Platelet Count 291 K/mm3 (150-400); Red Blood Cell Count 3.58 M/mm3 (4.30-5.90); White Blood Cell Count 13.97 K/mm3 (4.00-11.30)
[2020-08-23 20:50] LABS: BAND PERCENT MAN 17 % (0-8); BASOPHILS ABSOLUTE MAN 0.27 K/mm3 (0.00-0.23); BASOPHILS PERCENT MAN 2 % (0-2); EOSINOPHILS ABSOLUTE MAN 0.13 K/mm3 (0.00-0.68); EOSINOPHILS PERCENT MAN 1 % (0-6); LYMPHOCYTES ABSOLUTE MAN 2.09 K/mm3 (0.84-5.20); LYMPHOCYTES PERCENT MAN 15 % (21-46); METAMYELOCYTE ABSOLUTE MAN 0.13 K/mm3 (0.00-0.00); METAMYELOCYTE PERCENT MAN 1 % (0-0); MONOCYTES ABSOLUTE MAN 0.69 K/mm3 (0.16-1.47); MONOCYTES PERCENT MAN 5 % (4-13); MYELOCYTE ABSOLUTE MAN 0.13 K/mm3 (0.00-0.00); MYELOCYTE PERCENT MAN 1 % (0-0); NEUTROPHILS ABSOLUTE MAN 10.47 K/mm3 (1.96-9.15); SEG NEUTROPHILS PERCENT MAN 58 % (41-73); TOTAL CELLS COUNTED 100
[2020-08-23 20:55] LABS: Alanine Aminotransfer (ALT/SGP 31 U/L (12-78); Albumin, Blood 1.5 g/dL (3.4-5.0); Albumin/Globulin Ratio 0.3 (0.8-1.8); Alk Phos 103 U/L (50-136); Anion Gap 6 mmol/L (6-16); Aspartate Aminotrans (AST/SGOT 32 U/L (12-37); Blood Urea Nitrogen 20 mg/dL (8-24); Bun/Creatinine Ratio 33.7 (12.0-20.0); CO2, Blood 26 mmol/L (21-32); Calcium, Blood 8.3 mg/dL (8.5-10.1); Chloride, Blood 107 mmol/L (98-108); Creatinine, Blood 0.59 mg/dL (0.60-1.20); Globulin, Blood 5.5 g/dL (2.2-4.0); Glomerular Filtration Rate >60 (60-); Glucose, Blood 119 mg/dL (70-99); Sodium, Blood 139 mmol/L (136-145)
--- NOTE | 2020-08-24 04:20 | NUR ---
SHIFT SUMMARY S/P ENTEROCUTANSEOUS ABD FISTULA, A/O X4, VSS, OSTOMY BAG IN PLACE OVER FISTULA OPENING, RECORDING ALL FISTULA OUTPUT, ON TPN AT HOME AND DURING ADMIT, PT REQUESTS TO USE HIS OWN FIRST DUE TO IT BEING CLOSE TO EXPIRATION, STATES HE HAS 6 BAGS AT HOME HIS FAMILY CAN BRING IN, WILL CONSULT W/ PHARMACY AND ATTENDING REPORTS FEELING LIGHTHEADED/SOB EARLIER PRIOR TO SHIFT CHANGE BUT DENIES THIS CURRENTLY AND T/O SHIFT. CALL LIGHT IN REACH, WILL CONTINUE TO MONITOR AND REPORT TO ONCOMING DAY RN.
--- NOTE | 2020-08-24 17:15 | NUR ---
SHIFT SUMMARY PT A/O X4; PLEASANT AND COOPERATIVE WITH CARE. HE C/O DIZZINESS, DRY MOUTH, DEHYDRATION AND OVERALL MALAISE. HE IS RUNNING A LOW GRADE TEMP. PHYSICIAN NOTIFIED AND TYLENOL ORDERED. PT ALSO C/O CONSTIPATION AND REPORTS NOT HAVING A BM FOR A WEEK. PHYSICIAN NOTIFIED AND SUPPOSITORY ORDERED. HE HAS A FISTULA PRESENT THAT IS DRAINING INTO A COLOSTOMY BAG. THIN LIQUID NOTED DRAINAGE. AT THE BED SIDE; CALL LIGHT IN REACH.
--- NOTE | 2020-08-25 07:56 | NUR ---
SUMMARY PT AFEBRILE MY SHIFT, BUT FEBRILE FOR DAY RN.THEY WILL FOLLOW UP.
--- NOTE | 2020-08-25 17:34 | NUR ---
SUMMARY PT FEBRILE OFF AND ON T/O DAY. MEDICATED PER ORDERS W/TYLENOL. APPLIANCE CHANGED BY SPOUSE, DEMONSTRATED TO STAFF WHAT HAS BEEN WORKING FOR THEM AT HOME. GREENISH BROWN OUTPUT FROM FISTULA COLLECTION BAG. PT AMBULATED IN JASMINE W/SPOUSE ONCE DURING SHIFT. ADMINISTERED ABX PER ORDERS. PT VOIDING LANDON COLORED URINE AND REPORTED HAD BM THIS SHIFT. CALL LIGHT IN REACH.
[2020-08-26 04:33] LABS: Hematocrit 28.7 % (37.0-53.0); Hemoglobin 9.1 g/dL (13.5-17.5); Mean Corpuscular HGB 27.8 pg (26.0-34.0); Mean Corpuscular HGB Conc 31.7 g/dL (31.5-36.5); Mean Corpuscular Volume 88 fL (80-100); Mean Platelet Volume 11.5 fL (9.1-12.4); Platelet Count 322 K/mm3 (150-400); RDW Coefficient Variation 16.5 % (11.7-14.2); Red Blood Cell Count 3.27 M/mm3 (4.30-5.90); White Blood Cell Count 12.59 K/mm3 (4.00-11.30)
[2020-08-26 04:55] LABS: Anion Gap 8 mmol/L (6-16); Blood Urea Nitrogen 19 mg/dL (8-24); CO2, Blood 26 mmol/L (21-32); Calcium, Blood 8.1 mg/dL (8.5-10.1); Chloride, Blood 105 mmol/L (98-108); Creatinine, Blood 0.66 mg/dL (0.60-1.20); Glomerular Filtration Rate >60 (60-); Glucose, Blood 146 mg/dL (70-99); Magnesium, Blood 2.1 mg/dL (1.6-2.4); Phosphorus, Blood 4.1 mg/dL (2.5-4.9); Potassium, Blood 3.3 mmol/L (3.5-5.5); Sodium, Blood 139 mmol/L (136-145); Triglycerides 143 mg/dL (30-160)
[2020-08-26 05:50] LABS: BAND PERCENT MAN 16 % (0-8); BASOPHILS PERCENT MAN 0 % (0-2); EOSINOPHILS ABSOLUTE MAN 0.12 K/mm3 (0.00-0.68); EOSINOPHILS PERCENT MAN 1 % (0-6); LYMPHOCYTES ABSOLUTE MAN 1.38 K/mm3 (0.84-5.20); LYMPHOCYTES PERCENT MAN 11 % (21-46); MONOCYTES ABSOLUTE MAN 0.88 K/mm3 (0.16-1.47); MONOCYTES PERCENT MAN 7 % (4-13); NEUTROPHILS ABSOLUTE MAN 10.19 K/mm3 (1.96-9.15); SEG NEUTROPHILS PERCENT MAN 65 % (41-73); TOTAL CELLS COUNTED 100
--- NOTE | 2020-08-26 07:36 | NUR ---
SUMMARY MED WITH TYLENOL X1 FOR FEVER TONIGHT. ALSO ROOM TEMP WAS TURNED DOWN AFTER. PT WITH NO OTHER CHANGES TONIGHT.
--- NOTE | 2020-08-26 12:52 | NUR ---
Patient is lying in bed and alert. Patient tells me about his current medical conditions and the scans and labs that will be done this day. 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 Patient tells me about his belief in a high power and considers himself to be spiritual rather than baptist. Patient talks about the new diesel pile driver operator and possibly a whole new set of clubs that await him if he beats this series of health issues. He states that his biggest concern in all this is for his Melissa and how she will do emotionally after he is gone. I normalize patient's experience, reinforce helpful attitudes and practices and provide a therapeutic listening and a calming presence. Patient responds well and shows signs of an elevated mood and increased resolve to stay in the fight.
--- NOTE | 2020-08-26 18:36 | NUR ---
SHIFT SUMMARY PT HAS BEEN FATIGUED T/O DAY BUT AMBULATES TO BATHROOM TO VOID. DYSPNEA NOTED AFTER AMBULATION TO BATHROOM & BACK. TYLENOL x 1 FOR LOW GRADE FEVER.
[2020-08-27 05:35] LABS: Magnesium, Blood 1.8 mg/dL (1.6-2.4); Phosphorus, Blood 3.3 mg/dL (2.5-4.9)
--- NOTE | 2020-08-27 06:29 | NUR ---
SHIFT SUMMARY: PT APPEARS TO BE SLEEPING MOST OF SHIFT. REPORTS SOB AT REST AND WITH ACTIVITY. TACHYPNEA NOTED WITH RR 32 THIS MORNING. PT ALSO HAD A TEMP OF 101.7 THIS MORNING. MEDICATED WITH TYLENOL AND PT GIVEN ICE PACKS TO COOL DOWN. MOST RECENT TEMP 99.8. IV ABX+TPN INFUSING VIA PICC PER ORDERS. FISTULA WNL AND DRAINING INTO OSTOMY APPLIANCE. PT MANAGING OUTPUT INDEPENDENTLY. VOIDING IN URINAL.
--- NOTE | 2020-08-27 16:46 | NUR ---
Pt resting in bed upon arrival. Pt sits on edge of bed. Pt reports experiencing SOB with activity. He reports 1/10 pain in his abdomen. Pt's spouse Melissa at bedside. Engaged in therapeutic listening as Pt and spouse discusses concerns. Both Pt and spouse report their biggest concern is not knowing if this is an infection of the cancer and whether he will be able to continue treatment. Continued therapeutic listening and answered questions. 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 Pt has provided service to his country and community for much of his life. This RN thanked him for his service. Ended visit to allow Pt to rest. Pt and spouse agreeable for continued supportive visits. Spoke with Bedside MARIBEL Carroll and discussed case. Spoke with Dr Reed, Dr Mar, and discussed case. Palliative Care will remain available.
--- NOTE | 2020-08-27 18:44 | NUR ---
SHIFT SUMMARY PT WAS FATIGUED T/O DAY BUT STILL AMBULATED TO BATHROOMS FOR VOIDS & EMPTYING FISTULA OSTOMY. DIFFLUCAN STARTED. PT TOLERATED WELL. TYLENOL x 1 FOR FEVER.
--- NOTE | 2020-08-28 05:28 | NUR ---
SHIFT SUMMARY: PT MEDICATED WITH TYLENOL ONCE FOR TMAX 101.2. AFTER TYLENOL PT AFEBRILE AT 98.7. RESPIRATORY RATE REMAINS IN 20'S. PT DENIES SOB AT REST. PT REPORTS FEELING VERY WEAK WITH LITTLE ACTIVITY. REPORTS 4/10 PAIN AND MEDICATED ONCE WITH 25MCG OF FENTANYL WHICH WAS EFFECTIVE. PT ABLE TO BE INDEPENDENT IN ROOM. MANAGING FISTULA INDEPENDENTLY. VOIDING SMALL AMOUNTS IN URINAL. PT REPORTS NOT SLEEPING WELL PREVIOUS NIGHT. NEW ORDER FOR AMBKRUPA WHICH PT STARTED LAST NIGHT. PT APPEARS TO BE RESTING THIS MORNING. TPN AND IV ABX INFUSING PER EMAR.
[2020-08-28 05:35] LABS: Hematocrit 20.4 % (37.0-53.0); Hemoglobin 6.7 g/dL (13.5-17.5); Mean Corpuscular HGB 28.5 pg (26.0-34.0); Mean Corpuscular HGB Conc 32.8 g/dL (31.5-36.5); Mean Corpuscular Volume 87 fL (80-100); NRBC ABSOLUTE 0.06 K/mm3 (0.00-0.02); NRBC Auto 0.4 /100 WBC (0.0-0.2); Platelet Count 414 K/mm3 (150-400); RDW Coefficient Variation 16.5 % (11.7-14.2); Red Blood Cell Count 2.35 M/mm3 (4.30-5.90); White Blood Cell Count 16.35 K/mm3 (4.00-11.30)
[2020-08-28 05:44] LABS: Magnesium, Blood 1.9 mg/dL (1.6-2.4); Phosphorus, Blood 3.3 mg/dL (2.5-4.9)
[2020-08-28 06:15] LABS: Anion Gap 9 mmol/L (6-16); Blood Urea Nitrogen 15 mg/dL (8-24); Bun/Creatinine Ratio 26.2 (12.0-20.0); CO2, Blood 27 mmol/L (21-32); Calcium, Blood 7.7 mg/dL (8.5-10.1); Chloride, Blood 103 mmol/L (98-108); Creatinine, Blood 0.57 mg/dL (0.60-1.20); Glomerular Filtration Rate >60 (60-); Glucose, Blood 120 mg/dL (70-99); Potassium, Blood 2.7 mmol/L (3.5-5.5); Sodium, Blood 139 mmol/L (136-145)
[2020-08-28 06:41] LABS: BAND PERCENT MAN 8 % (0-8); BASOPHILS ABSOLUTE MAN 0.49 K/mm3 (0.00-0.23); BASOPHILS PERCENT MAN 3 % (0-2); EOSINOPHILS ABSOLUTE MAN 0.32 K/mm3 (0.00-0.68); EOSINOPHILS PERCENT MAN 2 % (0-6); LYMPHOCYTES PERCENT MAN 8 % (21-46); MONOCYTES ABSOLUTE MAN 1.47 K/mm3 (0.16-1.47); MONOCYTES PERCENT MAN 9 % (4-13); MYELOCYTE ABSOLUTE MAN 0.16 K/mm3 (0.00-0.00); MYELOCYTE PERCENT MAN 1 % (0-0); NEUTROPHILS ABSOLUTE MAN 12.58 K/mm3 (1.96-9.15); SEG NEUTROPHILS PERCENT MAN 69 % (41-73); TOTAL CELLS COUNTED 100
--- NOTE | 2020-08-28 09:00 | NUR ---
AM LABS BOTH DR YATES & DR CHO UPDATED ON AM LABS.
[2020-08-28 16:41] LABS: Hematocrit 29.2 % (37.0-53.0); Hemoglobin 9.6 g/dL (13.5-17.5)
--- NOTE | 2020-08-28 17:17 | NUR ---
08/28/20- per chart review with Dr. Mar, she states that the pt is receiving both blood and potassium transfusions. 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 Family wants aggressive treatment in homes that his fever will stop and pt can continue on chemotherapy for his cancer. Chemo has been held due to effects on his GI system. Pt has stated that he is not ready to give up. -shaina
--- NOTE | 2020-08-28 17:34 | NUR ---
Spoke with Bedside RN Carly and discussed case prior to Pt visit. Pt had conversation with Dr Reed and is considering hospice. Pt in restroom upon arrival brushing his teeth. Pt ambulated to bed and sits on edge of bed. Engaged in therapeutic listening as Pt and spouse report plan for hospice. Discussed hospice agencies with Pt electing [facility]. Spouse reports Pt is currently with [facility]. Answered questions and listened to concerns. Provided brief gentle education on hospice philosophy. Continued therapeutic listening. Pt and spouse express appreciation of visit. Pt agreeable for continued Palliative Care visit. Will place hospice referal. Palliative Care will remain available for supportive visits.
[2020-08-28 18:47] LABS: Anion Gap 5 mmol/L (6-16); Blood Urea Nitrogen 15 mg/dL (8-24); Bun/Creatinine Ratio 33.2 (12.0-20.0); CO2, Blood 27 mmol/L (21-32); Calcium, Blood 7.7 mg/dL (8.5-10.1); Chloride, Blood 104 mmol/L (98-108); Creatinine, Blood 0.45 mg/dL (0.60-1.20); Glomerular Filtration Rate >60 (60-); Glucose, Blood 118 mg/dL (70-99); Potassium, Blood 3.3 mmol/L (3.5-5.5); Sodium, Blood 136 mmol/L (136-145)
[2020-08-29 06:12] LABS: BASOPHILS ABSOLUTE AUTO 0.07 K/mm3 (0.00-0.23); BASOPHILS PERCENT AUTO 0 % (0-2); EOSINOPHILS ABSOLUTE AUTO 0.13 K/mm3 (0.00-0.68); EOSINOPHILS PERCENT AUTO 1 % (0-6); IMMATURE GRAN ABSOLUTE AUTO 0.17 K/mm3 (0.00-0.10); IMMATURE GRAN PERCENT AUTO 1 % (0-1); LYMPHOCYTES ABSOLUTE AUTO 1.65 K/mm3 (0.84-5.20); LYMPHOCYTES PERCENT AUTO 11 % (21-46); MONOCYTES ABSOLUTE AUTO 1.53 K/mm3 (0.16-1.47); MONOCYTES PERCENT AUTO 10 % (4-13); Mean Corpuscular HGB Conc 32.1 g/dL (31.5-36.5); Mean Corpuscular Volume 87 fL (80-100); Mean Platelet Volume 11.2 fL (9.1-12.4); NEUTROPHILS ABSOLUTE AUTO 12.01 K/mm3 (1.96-9.15); NEUTROPHILS PERCENT AUTO 77 % (41-73); Platelet Count 347 K/mm3 (150-400); RDW Coefficient Variation 16.2 % (11.7-14.2); RDW Standard Deviation 51.4 fL (35.1-46.3); Red Blood Cell Count 3.21 M/mm3 (4.30-5.90); White Blood Cell Count 15.56 K/mm3 (4.00-11.30)
[2020-08-29 06:29] LABS: Anion Gap 6 mmol/L (6-16); Blood Urea Nitrogen 16 mg/dL (8-24); Bun/Creatinine Ratio 24.7 (12.0-20.0); CO2, Blood 27 mmol/L (21-32); Chloride, Blood 104 mmol/L (98-108); Creatinine, Blood 0.65 mg/dL (0.60-1.20); Glomerular Filtration Rate >60 (60-); Glucose, Blood 123 mg/dL (70-99); Potassium, Blood 3.4 mmol/L (3.5-5.5); Sodium, Blood 137 mmol/L (136-145)
--- NOTE | 2020-08-29 07:32 | NUR ---
SUMMARY PT QUIET TONIGHT.PT OCC MENTIONING CT RESULTS.SUPPORT GIVEN.PT SPIKED FEVER TONIGHT.MED WITH TYLENOL.MED WITH SUBLIMAZE FOR PAIN.PT VERB HE FEELS THE MASS.
--- NOTE | 2020-08-29 11:48 | NUR ---
Spiritual care visit conducted. Patient tells me about his tumor and it's growth. He talks about the plan to go home on hospice and how he would prefer to try more rounds of chemo and radiation. He is extremely disappointed about the news of not being able to fight at this cancer anymore. He shares that his spouse is overwhelmed by all the decisions that she has to make. He also explains that he is at peace with and that he has left nothing on the table in life except 100 rounds of golf. I normalize his frustration, reinforce helpful attitudes and provide therapeutic listening and prayer. Patient responds well and shows signs of increased peace. I will continue to remain available to patient and family.
--- NOTE | 2020-08-29 12:15 | NUR ---
Pt visit this afternoon. Pt resting in bed and spouse Melissa is at bedside. Engaged in therapeutic listening as Melissa discusses plan for [facility] to meet with them this afternoon. Melissa states "We do understand that at some point we are going to have to face that everything has been done but we would like to know for sure that all options have been exhausted". Continued therapeutic listening and answered questions. Per Pt and spouse's request this RN will reach out to Dr Josue. Called and spoke with Dr Josue. Provided brief update and Pt's request to speak with him. Dr Josue reports he will visit Pt today. Palliative Care will remain available for supportive visits.
--- NOTE | 2020-08-29 15:23 | NUR ---
DR. YATES, ANALYSIS SPECIALIST, PT DAUGHTER AND PT IN ROOM AT THIS TIME DISCUSSING PT PLAN OF CARE. PT WOULD LIKE TO SPEAK TO DR. MOLINA IN ONCOLOGY BEFORE ANY FURTHER DICISIONS ARE MADE. SEE ANALYSIS SPECIALIST NOTES CONCERNING CONVERSTATION.
--- NOTE | 2020-08-29 16:42 | NUR ---
assumed care of pt following receiving report from previous RN Viji; pt's in room with pt
--- NOTE | 2020-08-30 05:04 | NUR ---
LITERS OF O2 ENTERED AT 22 INCORRECTLY. PATIENT IS CURRENTLY ON 2LPM.
[2020-08-30 05:24] LABS: BASOPHILS ABSOLUTE AUTO 0.08 K/mm3 (0.00-0.23); BASOPHILS PERCENT AUTO 1 % (0-2); EOSINOPHILS ABSOLUTE AUTO 0.23 K/mm3 (0.00-0.68); EOSINOPHILS PERCENT AUTO 2 % (0-6); Hematocrit 28.9 % (37.0-53.0); Hemoglobin 9.3 g/dL (13.5-17.5); IMMATURE GRAN ABSOLUTE AUTO 0.22 K/mm3 (0.00-0.10); IMMATURE GRAN PERCENT AUTO 2 % (0-1); LYMPHOCYTES ABSOLUTE AUTO 1.83 K/mm3 (0.84-5.20); LYMPHOCYTES PERCENT AUTO 12 % (21-46); MONOCYTES ABSOLUTE AUTO 1.42 K/mm3 (0.16-1.47); MONOCYTES PERCENT AUTO 10 % (4-13); Mean Corpuscular HGB 27.9 pg (26.0-34.0); Mean Corpuscular HGB Conc 32.2 g/dL (31.5-36.5); Mean Corpuscular Volume 87 fL (80-100); Mean Platelet Volume 10.8 fL (9.1-12.4); NEUTROPHILS PERCENT AUTO 74 % (41-73); Platelet Count 401 K/mm3 (150-400); RDW Coefficient Variation 16.3 % (11.7-14.2); RDW Standard Deviation 51.8 fL (35.1-46.3); Red Blood Cell Count 3.33 M/mm3 (4.30-5.90); White Blood Cell Count 14.78 K/mm3 (4.00-11.30)
[2020-08-30 05:41] LABS: Anion Gap 5 mmol/L (6-16); Blood Urea Nitrogen 15 mg/dL (8-24); CO2, Blood 29 mmol/L (21-32); Chloride, Blood 103 mmol/L (98-108); Glomerular Filtration Rate >60 (60-); Glucose, Blood 128 mg/dL (70-99); Potassium, Blood 3.4 mmol/L (3.5-5.5); Sodium, Blood 137 mmol/L (136-145)
--- NOTE | 2020-08-30 07:50 | NUR ---
pt drenched afebrile at this time bedbath given linen changed pt drowsy oob to bathroom to empty ostomy liquid green
--- NOTE | 2020-08-30 09:10 | NUR ---
pt resting in bed wearing his oxygen asked if he was out of breath after working with physical therapy stated no told pt to call if he needs anything
--- NOTE | 2020-08-30 11:02 | NUR ---
hospice by to see pt plan for discharge this afternoon will remove picc line
--- NOTE | 2020-08-30 11:38 | NUR ---
pt declined 1200 abx due to discharge will cont to keep ivf going untill he goes
[2020-08-30] MEDS ORDERED: MORP20L SL (12:14)
[2020-08-30] MEDS ORDERED: LORA.5 PO (12:15)
--- NOTE | 2020-08-30 12:20 | NUR ---
temp 100.4 po tylenol given pt did not want lunch supplies given for ostomy awaiting dr gupta for discharge
--- NOTE | 2020-08-30 13:14 | NUR ---
dr gupta by to see pt ok to discharge home
[2020-08-30] MEDS ORDERED: Acetaminophen325 M1 PO (13:21)
[2020-08-30] MEDS ORDERED: ACET120S PR (13:23)
[2020-08-30] MEDS ORDERED: ONDA4ODT MM (13:24)
[2020-08-30] MEDS ORDERED: Percocet 5-3251 EACH PO (13:25)
[2020-08-30] MEDS ORDERED: ZOLP5 PO (13:26)
--- NOTE | 2020-08-30 13:30 | NUR ---
called [facility] [place] req i fax the rx unavailable until 1400 picc line removed wc escort to car
== END 2020-08-30 13:33 | disposition home or self-care (01) | DRG 371 ==
LOC: SURS 15:41
PROVIDERS: Student in an Organized Health Care Education/Training Program; Surgery; ADMIT Surgery
PROC: 30233N1 Transfusion of Nonautologous Red Blood Cells into Peripheral Vein, Percutaneous Approach (ICD-10-PCS; principal; 2020-08-28)
DX: K65.1 Peritoneal abscess (principal); E43 Unspecified severe protein-calorie malnutrition; K63.2 Fistula of intestine; D62 Acute posthemorrhagic anemia; C18.9 Malignant neoplasm of colon, unspecified; R50.9 Fever, unspecified; E86.0 Dehydration; E78.5 Hyperlipidemia, unspecified; E03.9 Hypothyroidism, unspecified; Z79.4 Long term (current) use of insulin; E11.65 Type 2 diabetes mellitus with hyperglycemia; E87.6 Hypokalemia; R19.00 Intra-abdominal and pelvic swelling, mass and lump, unspecified site; Z51.5 Encounter for palliative care
CPT/HCPCS: 36415; 36430; 71046; 74177; 80048; 80053; 82947; 83735; 84100; 84478; 85014; 85018; 85025; 86850; 86900; 86901; 86923; 87040; 87103; 93005; 93010; 97116; 97161; 97165; 97530; A9270; J0610; J1450; J1650; J2543; J3010; J3475; J3480; J7050; J7120; J7131; P9016; Q9967